=== PATIENT | female | born 1945 | race Caucasian/White ===

== ENCOUNTER → 2016-05-03 | Outpatient (CLI) | payer MEDICARE ==
[~2016-05-03] MED LIST: AMLODIPINE BESYL5 MG PO; ASA CHILDREN'S81 MG PO; CENTRUM COMPLE1 EACH PO; COZAAR DPS50 MG PO; LEXAPRO DPS20 MG PO; LIPITOR DPS20 MG PO; NITROSTAT0.4 MG SL; PAMELOR DPS10 MG PO; PEPCID DPS20 MG PO; STRESS B-COMPL1 EACH PO; TYLENOL DPS325 MG PO; ZANAFLEX4 MG PO
== END | disposition home or self-care (01) ==
LOC: RAD.S 09:19
DX: Z12.31 Encounter for screening mammogram for malignant neoplasm of breast (principal)

== ENCOUNTER → 2016-08-19 | Outpatient (CLI) | payer MEDICARE | END | disposition home or self-care (01) | LOC: RAD.S 11:57 → PTH.S 12:15 | DX: R91.8 Other nonspecific abnormal finding of lung field (principal); K44.9 Diaphragmatic hernia without obstruction or gangrene; N20.0 Calculus of kidney ==

== ENCOUNTER → 2016-08-29 | Outpatient (CLI) | payer MEDICARE | END | disposition home or self-care (01) | LOC: RAD.S 06:58 | DX: M54.42 Lumbago with sciatica, left side (principal); M51.17 Intervertebral disc disorders with radiculopathy, lumbosacral region; M47.897 Other spondylosis, lumbosacral region; G89.29 Other chronic pain ==